=== PATIENT | female | born 1965 | race Caucasian/White ===

== ENCOUNTER → 2016-12-01 | Outpatient (CLI) | payer OTHER | LOC: KOH-I 12:31 | DX: M51.36 Other intervertebral disc degeneration, lumbar region (principal); M47.812 Spondylosis without myelopathy or radiculopathy, cervical region; M47.814 Spondylosis without myelopathy or radiculopathy, thoracic region; M47.816 Spondylosis without myelopathy or radiculopathy, lumbar region; N20.0 Calculus of kidney | CPT/HCPCS: 72050; 72070; 72110 ==

== ENCOUNTER 2021-06-15 11:06 | Emergency (ER) | payer OTHER ==
[~2021-06-15 11:06] MED LIST: CITALOPRAM HBR10 MG PO; COMPOUND CREAM TOP; CYCLOBENZAPRINE10 MG PO; IBUPROFEN600 MG PO; INDERAL TAB 1010 MG PO; LIDOCAINE OINTMENT TOP; MEDROL4 MG PO; NAPROXEN 250 M250 MG PO; NEURONTIN400 MG PO; NORCO 5-325 TA1 EACH PO; VITAMIN B6 PO; VITAMIN D3 PO
[2021-06-15 12:44] LABS: HEMOGLOBIN 13.2 gm/dl (12.3-15.3); RED BLOOD COUNT 4.49 M/UL (4.00-5.10); WHITE BLOOD COUNT 5.1 K/UL (4.5-11.0)
[2021-06-15 13:11] LABS: BUN/CREATININE RATIO 19 (0-10)
== END 2021-06-15 14:01 | disposition home or self-care (01) ==
LOC: ER1 11:06
PROVIDERS: Student in an Organized Health Care Education/Training Program
DX: D17.24 Benign lipomatous neoplasm of skin and subcutaneous tissue of left leg (principal); I10 Essential (primary) hypertension
CPT/HCPCS: 80048; 85025; 93971; 99284